=== PATIENT | male | born 1950 | race Caucasian/White ===

== ENCOUNTER 2017-03-26 05:43 | Inpatient (IN) ==
[2017-03-17 10:53] LABS: Basophils # 0.1 10*3/uL (0.0-0.2); Basophils % 0.8 % (0.0-0.8); Eosinophils # 0.2 10*3/uL (0.0-0.87); Eosinophils % 3.9 % (0.00-10.9); Hematocrit 44.9 VOL% (42.0-52.0); Hemoglobin 15.4 GM/DL (14.0-18.0); Immature Granulocytes % 0.5 %; Immature Granulocytes Absolute 0.03 #; Lymphocytes # 1.3 10*3/uL (1.4-4.0); Lymphocytes % 21.3 % (21.2-54.2); Mean Corpuscular HGB Conc 34.3 GM/DL (32-36); Mean Corpuscular Hemoglobin 29 PG (27-34); Mean Corpuscular Volume 85.9 FL (87-102); Mean Platelet Volume 9.6 FL (9.6-12.0); Monocytes # 0.5 10*3/uL (0.11-0.8); Monocytes % 7.4 % (1.7-12.7); Neutrophils # 4.1 10*3/uL (1.4-7.4); Neutrophils % 66.1 % (38.7-73.9); Platelet Count 237 T/CUMM (130-400); Red Blood Count 5.23 MC/CUMM (3.8-5.5); Red Cell Distribution Width 14.2 % (9.3-17.3); White Blood Count 6.2 T/CUMM (4-12)
[2017-03-17 11:27] LABS: Osmolality,Calculated 283.5 MOS/KG (273-304); Potassium 4.3 MMOL/L (3.5-5.1)
[2017-03-17 11:54] LABS: Apearance,Urine CLOUDY (Clear); Bacteria,Urine Occasional /HPF (Few); Bilirubin,Urine Negative (Negative); Blood, Urine Large mg/dL (Negative); Glucose,Urine (UA) >=500 mg/dL (Negative); Ketones,Urine 5 mg/dL (Negative); Mucus,Urine Occasional /LPF (Occasional); Nitrite,Urine Negative (Negative); Protein,Urine Negative; RBC,Urine 237 /HPF (0-4); Squamous Epithelial Cell,Urine Occasional /HPF (0-10); Urine Color Yellow (Yellow); Urine Specific Gravity 1.031 (1.001-1.035); Urine Urobilinogen < 2.0 EU/DL (0.2-1.0); WBC,Urine 3 /HPF (0-6)
[2017-03-26] MEDS ORDERED: ALVIMOPAN 12 MG CAPSULE ONE (05:57)
[2017-03-26] MEDS ORDERED: cefTRIAXone 1,000 MG VIAL ONE (05:57)
[2017-03-26] MEDS ORDERED: SODIUM PHOSPHATE ENEMA 133 ML BOTTLE RECTAL ONE ×2 (05:57→06:00)
[2017-03-26] MEDS ORDERED: cefTRIAXone 1,000 MG in SYRINGE 1 EACH IV ONE (06:00)
[2017-03-26] MEDS ORDERED: ALVIMOPAN 12 MG CAPSULE PO ONE (06:00)
[2017-03-26] MEDS ORDERED: FAMOTIDINE 20 MG/2 ML VIAL IV ONE ×2 (06:43→07:13)
[2017-03-26] MEDS ORDERED: LACTATED RINGERS 1,000 ML IV SCH (07:00)
[2017-03-26 08:37] LABS: Apearance,Urine CLOUDY (Clear); Bacteria,Urine Occasional /HPF (Few); Bilirubin,Urine Negative (Negative); Blood, Urine Large mg/dL (Negative); Glucose,Urine (UA) >=500 mg/dL (Negative); Ketones,Urine 5 mg/dL (Negative); Mucus,Urine Occasional /LPF (Occasional); Nitrite,Urine Negative (Negative); Protein,Urine Negative; RBC,Urine 106 /HPF (0-4); Squamous Epithelial Cell,Urine Occasional /HPF (0-10); Urine Color Yellow (Yellow); Urine Specific Gravity 1.022 (1.001-1.035); Urine Urobilinogen < 2.0 EU/DL (0.2-1.0); WBC,Urine 5 /HPF (0-6)
[2017-03-26] MEDS ORDERED: ONDANSETRON 4 MG/2 ML VIAL IV PRN ×2 (12:31→13:09)
[2017-03-26] MEDS: HYDROmorphone 2 MG/1 ML VIAL IV PRN ×3 (12:56→13:15)
[2017-03-26] MEDS ORDERED: HYDROmorphone 2 MG/1 ML VIAL ONE (12:57)
[2017-03-26] MEDS ORDERED: ONDANSETRON 4 MG/2 ML VIAL ONE (12:57)
[2017-03-26] MEDS ORDERED: MIDAZOLAM 2 MG/2 ML VIAL ONE (12:58)
[2017-03-26] MEDS ORDERED: PROPOFOL 200 MG/20 ML VIAL IV ONE (12:58)
[2017-03-26] MEDS ORDERED: SEVOFLURANE 1 UNIT/15 MINUTE INH ONE (12:58)
[2017-03-26] MEDS ORDERED: PHENYLEPHRINE 50 MG/5 ML VIAL ONE (12:58)
[2017-03-26] MEDS ORDERED: ACETAMINOPHEN 1,000 MG/100 ML VIAL IV ONE (12:59)
[2017-03-26] MEDS ORDERED: SODIUM CHLORIDE 0.9% 250 ML IV ONE (12:59)
[2017-03-26] MEDS ORDERED: LACTATED RINGERS 2,000 ML IV ONE (12:59)
[2017-03-26] MEDS ORDERED: ROCURONIUM 100 MG/10 ML VIAL IV ONE (12:59)
[2017-03-26] MEDS ORDERED: HYDROmorphone PCA 30 MG/30 ML SYRINGE IV SCH (13:00)
[2017-03-26] MEDS: SODIUM CHLORIDE 0.9% 1,000 ML IV SCH (13:23)
[2017-03-26] MEDS ORDERED: DEXTROSE 50% 25 GM/50 ML VIAL IV PRN (14:04)
[2017-03-26] MEDS ORDERED: GLUCAGON 1 MG VIAL IM PRN (14:04)
[2017-03-26] MEDS: INSULIN REGULAR 100 UNIT/ML SUBCUT SCH ×2 (17:12→20:28)
[2017-03-26] MEDS: metFORMIN 500 MG TABLET PO SCH (17:12)
[2017-03-26] MEDS: FUROSEMIDE 40 MG TABLET PO SCH (17:21)
[2017-03-26] MEDS: ALVIMOPAN 12 MG CAPSULE PO SCH (20:21)
[2017-03-26] MEDS: ATORVASTATIN 20 MG TABLET PO SCH (20:21)
[2017-03-27] MEDS: SODIUM CHLORIDE 0.9% 1,000 ML IV SCH (02:57)
[2017-03-27 06:44] LABS: Basophils % 0.4 % (0.0-0.8); Eosinophils # 0.1 10*3/uL (0.0-0.87); Eosinophils % 1.1 % (0.00-10.9); Hemoglobin 13.1 GM/DL (14.0-18.0); Immature Granulocytes % 0.4 %; Immature Granulocytes Absolute 0.03 #; Lymphocytes # 1.2 10*3/uL (1.4-4.0); Mean Corpuscular HGB Conc 33.6 GM/DL (32-36); Mean Corpuscular Hemoglobin 29 PG (27-34); Mean Corpuscular Volume 87.1 FL (87-102); Monocytes # 0.8 10*3/uL (0.11-0.8); Monocytes % 9.6 % (1.7-12.7); Neutrophils % 73.5 % (38.7-73.9); Platelet Count 234 T/CUMM (130-400); Red Blood Count 4.48 MC/CUMM (3.8-5.5); Red Cell Distribution Width 14.5 % (9.3-17.3); White Blood Count 8.2 T/CUMM (4-12)
[2017-03-27 07:14] LABS: Calcium 8.1 MG/DL (8.5-10.1); Potassium 3.8 MMOL/L (3.5-5.1)
[2017-03-27] MEDS ORDERED: oxyCODONE/ACETAMINOPHEN 5-325 MG TABLET PO PRN (09:09)
[2017-03-27] MEDS: PANTOPRAZOLE 40 MG TABLET PO SCH (09:17)
[2017-03-27] MEDS: OXYBUTYNIN XL 10 MG TABLET PO SCH (09:17)
[2017-03-27] MEDS: metFORMIN 500 MG TABLET PO SCH ×2 (09:17→17:33)
[2017-03-27] MEDS: POTASSIUM CHLORIDE 20 MEQ TABLET PO SCH (09:17)
[2017-03-27] MEDS: METOPROLOL TARTRATE 25 MG TABLET PO SCH (09:17)
[2017-03-27] MEDS: FUROSEMIDE 40 MG TABLET PO SCH ×2 (09:17→17:33)
[2017-03-27] MEDS: ALVIMOPAN 12 MG CAPSULE PO SCH ×2 (09:17→20:17)
[2017-03-27] MEDS: LISINOPRIL/HCTZ 20-25 MG TABLET PO SCH (09:17)
[2017-03-27] MEDS: INSULIN REGULAR 100 UNIT/ML SUBCUT SCH ×4 (09:18→22:05)
[2017-03-27] MEDS: EMPAGLIFLOZIN PO SCH (09:18)
[2017-03-27] MEDS ORDERED: MEPERIDINE 50 MG/1 ML VIAL IM PRN (09:30)
[2017-03-27] MEDS ORDERED: MAGNESIUM HYDROXIDE SUSP 30 ML UDCUP PO PRN (09:51)
[2017-03-27] MEDS: ATORVASTATIN 20 MG TABLET PO SCH (20:17)
[2017-03-28] MEDS: INSULIN REGULAR 100 UNIT/ML SUBCUT SCH ×2 (08:47→12:25)
[2017-03-28] MEDS: OXYBUTYNIN XL 10 MG TABLET PO SCH (09:48)
[2017-03-28] MEDS: METOPROLOL TARTRATE 25 MG TABLET PO SCH (09:48)
[2017-03-28] MEDS: POTASSIUM CHLORIDE 20 MEQ TABLET PO SCH (09:48)
[2017-03-28] MEDS: metFORMIN 500 MG TABLET PO SCH (09:48)
[2017-03-28] MEDS: LISINOPRIL/HCTZ 20-25 MG TABLET PO SCH (09:48)
[2017-03-28] MEDS: ALVIMOPAN 12 MG CAPSULE PO SCH (09:48)
[2017-03-28] MEDS: FUROSEMIDE 40 MG TABLET PO SCH (09:48)
[2017-03-28] MEDS: EMPAGLIFLOZIN PO SCH (09:49)
[2017-03-28] MEDS: PANTOPRAZOLE 40 MG TABLET PO SCH (09:50)
[2017-03-28 13:28] VITALS: BP 136/77
== END 2017-03-28 13:40 | disposition home or self-care (01) | DRG 707 ==
LOC: N.OR 05:43 → N.SDSINP 05:44 → N.5E 09:33
PROVIDERS: ADMIT Urology; ATTEND Urology

== ENCOUNTER 2022-01-09 09:18 | Inpatient (IN) ==
[2022-01-09] MEDS ORDERED: MAGNESIUM SULF RIDER 2 GM/50 ML PREMIX IV PRN ×2 (10:15)
[2022-01-09] MEDS ORDERED: diphenhydrAMINE CAP 50 MG CAPSULE PO ONE (10:15)
[2022-01-09] MEDS ORDERED: ACETAMINOPHEN 325 MG TABLET PO PRN (10:15)
[2022-01-09] MEDS ORDERED: DOCUSATE SODIUM 100 MG CAPSULE PO PRN (10:15)
[2022-01-09] MEDS ORDERED: ONDANSETRON 4 MG/2 ML VIAL IV PRN (10:15)
[2022-01-09] MEDS ORDERED: DIAZEPAM 5 MG TABLET PO ONE (10:15)
[2022-01-09] MEDS ORDERED: hydrALAZINE 20 MG/1 ML VIAL IV PRN (10:15)
[2022-01-09] MEDS ORDERED: POTASSIUM CHLORIDE 20 MEQ TABLET PO PRN (10:15)
[2022-01-09] MEDS ORDERED: ZALEPLON 5 MG CAPSULE PO PRN (10:15)
[2022-01-09] MEDS ORDERED: diphenhydrAMINE CAP 25 MG CAPSULE PO PRN (10:15)
[2022-01-09] MEDS ORDERED: ASPIRIN 325 MG TABLET PO ONE (10:15)
[2022-01-09] MEDS ORDERED: MAGNESIUM SULF RIDER 4 GM/100 ML PREMIX IV PRN (10:15)
[2022-01-09] MEDS ORDERED: POTASSIUM CHLORIDE RIDER 10 MEQ/100 ML PREMIX IV PRN (10:15)
[2022-01-09] MEDS ORDERED: guaiFENesin/DM ER 600-30 MG TABLET PO PRN (10:15)
[2022-01-09] MEDS ORDERED: ALUMINUM/MAGNES/SIMETH MAX STR 30 ML UDCUP PO PRN (10:15)
[2022-01-09] MEDS ORDERED: VERAPAMIL 5 MG/2 ML VIAL ONE (10:33)
[2022-01-09] MEDS ORDERED: NITROGLYCERIN DRIP 50 MG/250 ML BOTTLE IV ONE (10:33)
[2022-01-09] MEDS ORDERED: HEPARIN/NACL 0.9% 2 UNITS/ML 2,000 UNIT/1,000 ML BAG IV ONE (10:33)
[2022-01-09] MEDS ORDERED: FUROSEMIDE 40 MG TABLET PO PRN (10:34)
[2022-01-09] MEDS ORDERED: HYDROmorphone 1 MG/1 ML SYRINGE ONE (11:03)
[2022-01-09] MEDS ORDERED: MIDAZOLAM 2 MG/2 ML VIAL ONE (11:03)
[2022-01-09] MEDS ORDERED: TIROFIBAN 5,000 MCG/100 ML PREMIX IV ONE (11:28)
[2022-01-09] MEDS ORDERED: TICAGRELOR 90 MG TABLET ONE (12:19)
[2022-01-09] MEDS: SODIUM CHLORIDE 0.9% 1,000 ML IV SCH ×3 (16:05→23:30)
[2022-01-09] MEDS: INSULIN LISPRO 100 UNIT/ML SUBCUT SCH ×3 (16:06→20:41)
[2022-01-09] MEDS: TICAGRELOR 90 MG TABLET PO SCH (20:39)
[2022-01-09] MEDS: METOPROLOL TARTRATE 50 MG TABLET PO SCH (20:39)
[2022-01-09] MEDS: ATORVASTATIN 80 MG TABLET PO SCH (20:39)
[2022-01-10 04:50] LABS: Basophils % 0.5 % (0.0-0.8); Eosinophils # 0.1 10*3/uL (0.0-0.87); Eosinophils % 1.3 % (0.00-10.9); Hematocrit 34.6 VOL% (42.0-52.0); Hemoglobin 10.6 GM/DL (14.0-18.0); Immature Granulocytes % 0.5 %; Immature Granulocytes Absolute 0.04 #; Lymphocytes # 0.8 10*3/uL (1.4-4.0); Lymphocytes % 10.3 % (21.2-54.2); Mean Corpuscular HGB Conc 30.6 GM/DL (32-36); Mean Platelet Volume 9.6 FL (9.6-12.0); Monocytes # 0.5 10*3/uL (0.11-0.8); Neutrophils % 81.4 % (38.7-73.9); Platelet Count 303 T/CUMM (130-400); Red Blood Count 4.17 MC/CUMM (3.8-5.5); Red Cell Distribution Width 15.8 % (9.3-17.3); White Blood Count 7.7 T/CUMM (4-12)
[2022-01-10 05:13] LABS: Hypochromia 1+; Microcytosis 1+; Ovalocytes Few; Platelet Estimate Normal
[2022-01-10 05:17] LABS: Albumin 2.5 G/DL (3.4-5.0); Bilirubin,Total 0.6 MG/DL (0.20-1.00); CKMB % 7.8 %; Calcium 8.2 MG/DL (8.5-10.1); Osmolality,Calculated 280.5 MOS/KG (273-304); Potassium 3.3 MMOL/L (3.5-5.1); Risk Ratio 4.37; Thyroid Stimulating Hormone 1.21 uIU/ml (0.358-3.74); Total Protein 6.8 G/DL (6.4-8.2)
[2022-01-10 05:22] LABS: High Sensitive Troponin I* 19620.3 ng/L (0-78)
[2022-01-10] MEDS ORDERED: POTASSIUM CHLORIDE 20 MEQ TABLET PO ONE ×2 (07:27→21:00)
[2022-01-10] MEDS: INSULIN LISPRO 100 UNIT/ML SUBCUT SCH ×4 (08:21→20:42)
[2022-01-10] MEDS: CYANOCOBALAMIN 500 MCG TABLET PO SCH (08:29)
[2022-01-10] MEDS: PANTOPRAZOLE 40 MG TABLET PO SCH (08:30)
[2022-01-10] MEDS: OXYBUTYNIN XL 10 MG TABLET PO SCH (08:31)
[2022-01-10] MEDS: ASPIRIN EC 81 MG TABLET PO SCH (08:31)
[2022-01-10] MEDS: CHOLECALCIFEROL 1,000 UNIT TABLET PO SCH (08:31)
[2022-01-10] MEDS: EZETIMIBE 10 MG TABLET PO SCH (08:31)
[2022-01-10] MEDS: METOPROLOL TARTRATE 50 MG TABLET PO SCH ×2 (08:31→21:48)
[2022-01-10] MEDS: TICAGRELOR 90 MG TABLET PO SCH ×2 (08:31→21:47)
[2022-01-10] MEDS: TAMSULOSIN 0.4 MG CAPSULE PO SCH (08:31)
[2022-01-10] MEDS ORDERED: EMPAGLIFLOZIN 25 MG PO SCH (09:00)
[2022-01-10] MEDS: SODIUM CHLORIDE 0.9% 1,000 ML IV SCH ×2 (09:32→17:13)
[2022-01-10 11:54] LABS: CKMB % 6.3 %
[2022-01-10] MEDS: ATORVASTATIN 80 MG TABLET PO SCH (21:49)
[2022-01-10] MEDS: FERROUS SULFATE 325 MG TABLET PO SCH (21:49)
[2022-01-11] MEDS: SODIUM CHLORIDE 0.9% 1,000 ML IV SCH ×3 (02:15→16:41)
[2022-01-11 04:28] LABS: Basophils % 0.6 % (0.0-0.8); Eosinophils # 0.2 10*3/uL (0.0-0.87); Eosinophils % 2.6 % (0.00-10.9); Hematocrit 36.3 VOL% (42.0-52.0); Hemoglobin 11.3 GM/DL (14.0-18.0); Immature Granulocytes % 0.8 %; Immature Granulocytes Absolute 0.05 #; Lymphocytes # 1.1 10*3/uL (1.4-4.0); Lymphocytes % 18.2 % (21.2-54.2); Mean Corpuscular HGB Conc 31.1 GM/DL (32-36); Mean Corpuscular Volume 82.1 FL (87-102); Mean Platelet Volume 9.9 FL (9.6-12.0); Monocytes # 0.4 10*3/uL (0.11-0.8); Monocytes % 6.1 % (1.7-12.7); Neutrophils % 71.7 % (38.7-73.9); Platelet Count 324 T/CUMM (130-400); Red Blood Count 4.42 MC/CUMM (3.8-5.5); Red Cell Distribution Width 15.8 % (9.3-17.3); White Blood Count 6.3 T/CUMM (4-12)
[2022-01-11 04:50] LABS: Albumin 2.8 G/DL (3.4-5.0); Bilirubin,Total 0.5 MG/DL (0.20-1.00); Calcium 8.8 MG/DL (8.5-10.1); Osmolality,Calculated 274.5 MOS/KG (273-304); Potassium 3.5 MMOL/L (3.5-5.1); Total Protein 7.3 G/DL (6.4-8.2)
[2022-01-11] MEDS: INSULIN LISPRO 100 UNIT/ML SUBCUT SCH ×2 (07:32→11:49)
[2022-01-11] MEDS ORDERED: POTASSIUM CHLORIDE 20 MEQ TABLET PO ONE (07:35)
[2022-01-11 07:42] VITALS: BP 125/66
[2022-01-11] MEDS: EZETIMIBE 10 MG TABLET PO SCH (08:01)
[2022-01-11] MEDS: FERROUS SULFATE 325 MG TABLET PO SCH (08:01)
[2022-01-11] MEDS: CYANOCOBALAMIN 500 MCG TABLET PO SCH (08:01)
[2022-01-11] MEDS: TICAGRELOR 90 MG TABLET PO SCH (08:01)
[2022-01-11] MEDS: ASPIRIN EC 81 MG TABLET PO SCH (08:01)
[2022-01-11] MEDS: OXYBUTYNIN XL 10 MG TABLET PO SCH (08:01)
[2022-01-11] MEDS: TAMSULOSIN 0.4 MG CAPSULE PO SCH (08:02)
[2022-01-11] MEDS: PANTOPRAZOLE 40 MG TABLET PO SCH (08:02)
[2022-01-11] MEDS: CHOLECALCIFEROL 1,000 UNIT TABLET PO SCH (08:02)
[2022-01-11] MEDS: METOPROLOL TARTRATE 50 MG TABLET PO SCH (08:02)
[2022-01-11] MEDS ORDERED: LISINOPRIL/HCTZ 20-12.5 MG TABLET PO SCH (09:00)
== END 2022-01-11 13:15 | disposition home or self-care (01) | DRG 247 ==
LOC: N.ED 09:18 → N.EDINP 09:18 → N.2W 10:42
PROVIDERS: ADMIT Internal Medicine Cardiovascular Disease; ATTEND Internal Medicine Cardiovascular Disease